=== PATIENT | male | born 1965 | race Caucasian/White ===

== ENCOUNTER 2022-05-12 17:30 | Outpatient (CLI) | payer OTHER | END 2022-05-12 17:31 | disposition home or self-care (01) | LOC: SLEEPLAB 17:30 | PROVIDERS: ATTEND Internal Medicine | DX: G47.33 Obstructive sleep apnea (adult) (pediatric) (principal); R06.83 Snoring; G47.00 Insomnia, unspecified | CPT/HCPCS: 95800 ==

== ENCOUNTER 2022-06-09 10:42 | Emergency (ER) | payer OTHER ==
[2022-06-09] MEDS ORDERED: Cyclobenzaprine 10 MG TAB ONE (12:30)
== END 2022-06-09 12:39 | disposition home or self-care (01) ==
LOC: ERS 10:42
DX: M25.511 Pain in right shoulder (principal)

== ENCOUNTER 2022-07-08 13:38 | Outpatient (CLI) | payer OTHER ==
[~2022-07-08 13:38] MED LIST: Magnevist 469MG/ML 20 ML VIAL ONE
== END 2022-07-08 13:39 | disposition home or self-care (01) ==
LOC: TBSIIMAG 13:38
PROVIDERS: ATTEND Orthopaedic Surgery
DX: M25.511 Pain in right shoulder (principal)
CPT/HCPCS: A9579